=== PATIENT | male | born 1980 | race African-American/Black ===

== ENCOUNTER 2016-10-13 16:12 | Emergency (ER) | payer MEDICARE, MEDICAID ==
[~2016-10-13 16:12] MED LIST: LITHTAB PO; OLAN10TA3 PO
== END 2016-10-14 | disposition left against medical advice (07) ==
LOC: ER 10-14 08:55
DX: Z76.0 Encounter for issue of repeat prescription (principal); Z53.21 Procedure and treatment not carried out due to patient leaving prior to being seen by health care provider

== ENCOUNTER 2017-05-13 06:47 | Emergency (ER) | payer MEDICARE, MEDICAID ==
[~2017-05-13] VITALS: Ht 185.4 cm; Wt 77.0 kg
[2017-05-13 09:18] LABS: CLARITY URINE CLEAR (CLEAR); COLOR URINE YELLOW (YELLOW); KETONES URINE NEGATIVE (NEGATIVE); LEUKOCYTE ESTERASE URINE NEGATIVE (NEGATIVE); NITRITE URINE NEGATIVE (NEGATIVE); OCCULT BLOOD URINE NEGATIVE (NEGATIVE); PH URINE 8.5 (4.5-8.0); PROTEIN URINE NEGATIVE (NEGATIVE); SPECIFIC GRAVITY URINE 1.019 (1.005-1.030); UROBILINOGEN URINE 0.2 E.U./dL (0.2-1.0)
[2017-05-13 09:32] LABS: *AMPHETAMINES SCREEN URINE NEGATIVE (NEGATIVE); *BARBITURATES SCREEN URINE NEGATIVE (NEGATIVE); *BENZODIAZEPINES SCREEN URINE NEGATIVE (NEGATIVE); *COCAINE SCREEN URINE NEGATIVE (NEGATIVE); CANNABINOID URINE SCREEN NEGATIVE (NEGATIVE); METHADONE URINE SCREEN NEGATIVE (NEGATIVE); OPIATES URINE SCREEN NEGATIVE (NEGATIVE); PHENCYCLIDINE URINE SCREEN NEGATIVE (NEGATIVE)
[2017-05-13 09:43] LABS: BASOPHILS % 0.4 % (0.0-2.0); EOSINOPHILS % 1.7 % (0.0-5.0); HEMATOCRIT. 38.2 % (42.0-52.0); LYMPHOCYTES % 23.8 % (20.0-50.0); MEAN CORPUSCULAR VOLUME 85.3 fL (80.0-94.0); MEAN PLATELET VOLUME 9.5 fl (7.4-10.4); MONOCYTES % 6.2 % (2.0-8.0); NEUTROPHILS % 67.9 % (40.0-76.0); PLATELET 192 x1000/uL (130-400); RED BLOOD CELL COUNT 4.48 mill/uL (4.7-6.1); RED CELL DISTRIBUTION WIDTH 13.5 % (11.6-14.6)
[2017-05-13 09:50] LABS: CHLORIDE 108 mEq/L (98-107)
[2017-05-13 10:05] LABS: ETHANOL BLOOD < 10 mg/dL
[2017-05-14 02:43] VITALS: BP 123/77
== END 2017-05-14 03:19 ==
LOC: ER 06:47
DX: R45.851 Suicidal ideations (principal); R44.0 Auditory hallucinations; F20.9 Schizophrenia, unspecified; F14.10 Cocaine abuse, uncomplicated; Z88.8 Allergy status to other drugs, medicaments and biological substances
CPT/HCPCS: 36415; 80053; 80178; 80305; 80307; 80329; 81003; 85025; 99285; G0482

== ENCOUNTER 2018-03-05 17:53 | Emergency (ER) | payer MEDICARE, MEDICAID ==
[~2018-03-05] VITALS: Ht 185.4 cm; Wt 90.0 kg
[2018-03-05 18:09] VITALS: BP 124/78
== END 2018-03-05 20:18 | disposition left against medical advice (07) ==
LOC: ER 17:53
DX: Z53.21 Procedure and treatment not carried out due to patient leaving prior to being seen by health care provider (principal)

== ENCOUNTER 2018-11-23 17:24 | Emergency (ER) | payer MEDICARE, MEDICAID ==
[~2018-11-23] VITALS: Ht 177.8 cm; Wt 66.0 kg
[2018-11-23] MEDS ORDERED: OLANZAPINE 10 MG/VIAL IM ONE (18:00)
[2018-11-23 22:30] VITALS: BP 118/77
== END 2018-11-23 23:08 | disposition home or self-care (01) ==
LOC: ER 17:24
DX: F20.9 Schizophrenia, unspecified (principal); R46.2 Strange and inexplicable behavior; R03.0 Elevated blood-pressure reading, without diagnosis of hypertension
CPT/HCPCS: 96372; 99284; J3490

== ENCOUNTER 2019-01-08 10:01 | Emergency (ER) | payer MEDICARE, MEDICAID ==
[~2019-01-08] VITALS: Ht 185.4 cm; Wt 68.0 kg
[2019-01-08 10:06] VITALS: BP 144/90
== END 2019-01-08 10:38 | disposition left against medical advice (07) ==
LOC: ER 10:01
DX: F60.9 Personality disorder, unspecified (principal); Z53.21 Procedure and treatment not carried out due to patient leaving prior to being seen by health care provider